=== PATIENT | female | born 1985 | race Caucasian/White ===

== ENCOUNTER 2017-05-21 14:08 | Emergency (ER) | payer SELFPAY ==
[2017-05-21 15:05] LABS: Bilirubin Negative (Negative); Blood, Urine Trace (Negative); Glucose, Urine (Dipstick) Negative (Negative); Ketone, Urine Trace mg/dL (Negative); Nitrite Negative (Negative); Protein, Urine (Dipstick) Negative (Neg-Trace); Urobilinogen 0.2 mg/dL (0.2-1.0)
[2017-05-21 15:08] LABS: Bacteria/HPF None Seen HPF (None Seen); Hyaline Casts/LPF 0-3 HYALINE CAST LPF (0-3 Hyaline); Squamous Epithelial 0-3 HPF (0-3); WBC/HPF 0-3 HPF (0-3)
[2017-05-21] MEDS ORDERED: Ketorolac Tromethamine 60 MG/2 ML VIAL ONE (15:36)
--- NOTE | 2017-05-21 16:27 | CT ---
CT ABDOMEN AND PELVIS WITHOUT CONTRAST: Technique: Multiple axial tomograms were obtained through the abdomen and pelvis without IV enhanceme nt. History: Abdominal pain. Left lower quadrant pain. FINDINGS: Lung base is clear. Liver, spleen, and pancreas unremarkable. Adrenal glands appear normal. Evaluation of the kidneys shows no evidence of hydronephrosis. Tiny nonobstructing calculus in the mi dpole collecting structures of the left kidney is identified measuring approximately 3 mm. No uretera l obstruction or calculus is seen. Small bowel loops are normal. Appendix appears normal. Images through the pelvis reveal a complex mass posterior to the uterus, nearing the midline but slig htly to the left. This mass measures approximately 10 cm width x 6.7 cm AP dimension in the axial artemio ne. This mass has predominately fat density but there are soft tissue components, septations, and coa rse calcification present. 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 IMPRESSION: 1. Large complex mass in the deep pelvis with dimension given above. Density of this mass would indic ate a dermoid tumor as discussed above. 2. Incidentally noted is a small nonobstructing calculus in the mid pole collecting structures of the left kidney. POS: THERESE
== END 2017-05-21 16:34 | disposition home or self-care (01) ==
LOC: ERS 14:08
DX: R19.00 Intra-abdominal and pelvic swelling, mass and lump, unspecified site (principal)
CPT/HCPCS: 74176; 81003; 81015; 81025; 96372; J1885